=== PATIENT | female | born 1940 | race Caucasian/White ===

== ENCOUNTER → 2016-12-05 | Outpatient (CLI) | payer MEDICARE, OTHER ==
[~2016-12-05] MED LIST: ACETAMINOPHEN650 M1 PO; ALPRAZOLAM PO; ANTIVERT PO; COATED ASPIRIN325 M1 PO; HYDROCODON-ACE1 EAC7 PO; HYDROCODONE APAP; HYDROCODONE-APA1 T45 PO; IRON INFUSIONS; LISINOPRIL PO; LOPRESSOR PO; LORTAB 7.5-5001 TAB PO; METOPROLOL SUCC25 MG PO; NEXIUM20 MG PO; NORCO 10/3251 TAB PO; NORCO 7.5-3251 EACH PO; OMEPRAZOLE40 M1 PO; PRILOSEC PO; PRILOSEC20 MG PO; PROAIR HFA8.5 GM IH; SYMBICORT 16010.2 GM INH; VANTIN100 MG PO; VICODIN 5/500 T1 TAB PO; ZOFRAN PO; [UNRECOGNIZED DRUG - OTHER]
--- NOTE | ~2016-12-05 | CT4 ---
[facility] A Service of [facility] & [facility] RADIOLOGY TEXT RESULTS PATIENT: SAMY BYNUM LOCATION: [facility] : 40 UNIT #: [id number] AGE: [address]: Andrew Mora MD SEX: F ORDER DR: [id number] [address] [address] [id number] MR#: [id number] Acc #: [id number] NAME: SAMY BYNUM : 1940 SEX: F STUDY DATE/TIME: 12/05/2016 11:20 UNIT: [facility] ROOM: STUDY DESCRIPTION: CT Abd and Pelv Wo Cont Attending Physician: Andrew Mora M.D. Referring Physician: Andrew Mora M.D. Ordering Physician: Andrew Mora M.D. Primary Care Physician: Papo Hare M.D. MEDICAL IMAGING REPORT This report is preliminary unless electronic signature is present. EXAM CT abdomen and pelvis about contrast, 12/05/2016 HISTORY Left lower quadrant abdominal pain for 2 weeks. Ultrasound done 1 week ago demonstrating a possible mass in the colon or ovary, per provided patient history. Physician's order states intestinal malabsorption unspecified, iron-deficiency anemia unspecified, malignant neoplasm of the upper lobe right bronchus or lung. COMPARISON PET/CT 03/07/2017. There is no recent ultrasound at this institution for correlation, as would be suggested on the provided patient history. PROCEDURE 5-mm noncontrast axial images from the lung bases through the lesser trochanters without intravenous or enteric contrast administration. Sagittal and coronal reformatted images were obtained. This CT exam was performed with one or more of the following radiation dose reduction techniques: automatic exposure control, adjustment of mA and/or kV according to patient size, and iterative reconstruction. FINDINGS ABDOMEN: The spleen is enlarged, measuring 15.2 cm craniocaudal, 14.8 cm AP oblique. It is larger than on the 03/07/2016 PET/CT where it measured about 13.6 cm AP oblique dimension. No focal splenic lesions identified. Emphysematous changes are present within the lung bases. Lung bases are free of consolidation. Coronary artery calcifications are present. The liver demonstrates a nodular surface morphology raising the possibility of cirrhosis. No focal liver lesions are identified on today's noncontrast exam. There is no ascites. Cholecystectomy changes. The pancreas, right STS. [facility] A Service of [facility] RADIOLOGY TEXT RESULTS PATIENT: SAMY BYNUM LOCATION: [facility] : 40 UNIT #: [id number] AGE: [address]: Andrew Mora MD SEX: F ORDER DR: adrenal, and bilateral kidneys are within normal limits. There is mild thickening of the left adrenal gland without discrete nodularity, likely on the basis hyperplasia. Extensive diverticular changes are present within the colon. The appendix is normal. No pathologic retroperitoneal or mesenteric adenopathy is seen. There is abnormal fusiform aneurysmal dilation of the infrarenal abdominal aorta measuring 5.2 x 5.1 cm, increased from 5.0 x 5.0 cm on the 03/07/2016 examination. PELVIS: A soft tissue mass is demonstrated in the left hemipelvis, measuring 6.1 cm AP x 4.3 cm transverse x 5.1 cm craniocaudal. It is intimately associated with the left pelvic sidewall and is contiguous to the sigmoid colon. It also appears to extend contiguously to the left adnexa and the left lateral margin of the uterus. It is unclear whether this represents an adnexal malignancy or perhaps a primary colonic malignancy. Of particular note, several of the images through the pelvis are degraded by beam-hardening artifact related to patient's bilateral hip prostheses. The urinary bladder is not visualized. The imaged portion of the rectum appears grossly unremarkable. No definite pelvic free fluid is seen. No suspicious osteolytic or osteoblastic lesions are identified. Degenerative facet changes are present at L3-4 through L5-S1. IMPRESSION 1. Abnormal examination. There is a soft tissue density mass in the left hemipelvis. It appears contiguous to the left adnexa, left lateral uterine body margin, and the sigmoid colon. Malignancy cannot be excluded, and it is difficult to discriminate whether this could represent an exophytic primary colonic malignancy or potential ovarian malignancy. Ultimately, surgical consultation is advised. This finding appears new compared to the PET/CT from 03/07/2016. 2. There is no convincing evidence of metastatic disease elsewhere within the pelvis. 3. Cirrhotic liver morphology. Please correlate with known clinical history. 4. Splenomegaly, increased from 03/07/2016. No focal splenic lesions identified. This could be related to suspected underlying cirrhosis. 5. No ascites. 6. 5.2 x 5.1 cm fusiform infrarenal abdominal aortic aneurysm is slightly larger than on 03/07/2016, when it measured 5.0 x 5.0 cm. Vascular surgery consultation advised if not previously performed. 7. Mild emphysema. 8. Cholecystectomy, bilateral hip replacement changes. [facility] A Service of [facility] RADIOLOGY TEXT RESULTS PATIENT: SAMY BYNUM LOCATION: [facility] : 40 UNIT #: [id number] AGE: [address]: Andrew Mora MD SEX: F ORDER DR: Dictated by... Maddison Gomez M.D. THIS IS AN ELECTRONICALLY VERIFIED REPORT Maddison Gomez M.D. at 12/07/2016 7:24 AM PHILOMENA/fior TD: 12/06/2016 11:33 JOB #: [id number] MEDICAL IMAGING REPORT Page 1 of 1
== END | disposition home or self-care (01) ==
LOC: SCT 09:08
DX: C34.11 Malignant neoplasm of upper lobe, right bronchus or lung (principal); K90.9 Intestinal malabsorption, unspecified; D50.9 Iron deficiency anemia, unspecified; M13.0 Polyarthritis, unspecified; M79.89 Other specified soft tissue disorders; R16.1 Splenomegaly, not elsewhere classified; I71.4 Abdominal aortic aneurysm, without rupture; J43.9 Emphysema, unspecified; R93.5 Abnormal findings on diagnostic imaging of other abdominal regions, including retroperitoneum; Z90.49 Acquired absence of other specified parts of digestive tract; Z96.643 Presence of artificial hip joint, bilateral
CPT/HCPCS: 74176

== ENCOUNTER → 2017-02-01 | Outpatient (CLI) | payer MEDICARE, OTHER ==
--- NOTE | ~2017-02-01 | EKG ---
PATIENT: SAMY BYNUM UNIT #: [id number] Ventricular Rate: 96 BPM Atrial Rate: 96 BPM P-R Interval: 202 ms QRS Duration: 80 ms Q-T Interval: 354 ms QTC Calculation(Bezet): 447 ms P Elkins: 77 degrees Calculated R Elkins: 49 degrees Calculated T Elkins: 66 degrees Diagnosis Line: Sinus rhythm with occasional Premature ventricular Diagnosis Line: complexes Diagnosis Line: Otherwise normal ECG Diagnosis Line: When compared with ECG of 25-FEB-2014 09:45, Diagnosis Line: Premature ventricular complexes are now Present Diagnosis Line: Criteria for Inferior infarct are no longer Diagnosis Line: Present Diagnosis Line: Confirmed by FRANCISCO JOHNSTON MD ([id number]) on Diagnosis Line: 02/02/2017 6:41:43 AM INTERPRETING : PATIENCE
[2017-02-01 10:27] LABS: HEMATOCRIT 35.2 % (35.0-45.0); HEMOGLOBIN 11.3 gm/dL (12.0-16.0); MEAN CORPUSCULAR HEMOGLOBIN 26.5 PG (28-34); MEAN PLATELET VOLUME 6.8 FL (6.5-11.5); RED BLOOD COUNT 4.24 X10e (3.90-5.30); RED CELL DISTRIBUTION WIDTH 15.6 % (11.0-15.5); WHITE BLOOD COUNT 3.8 X10e3 (4.0-10.5)
[2017-02-01 11:09] LABS: ALBUMIN SERUM 3.8 g/dL (3.5-5.0); BILIRUBIN,TOTAL 1.2 mg/dL (0.2-2.0); BUN/CREATININE RATIO 18.57; CALCIUM SERUM 9.1 mg/dL (8.4-10.2); CREATININE SERUM 0.7 mg/dL (0.6-1.4); GLOM FILT RATE Estimated 84.2 mL/min (>60); POTASSIUM 4.4 mmol/L (3.5-5.1); PROTEIN TOTAL SERUM 7.7 g/dL (6.0-8.3)
== END | disposition home or self-care (01) ==
LOC: CAMB 08:26
PROVIDERS: Surgery
DX: Z01.818 Encounter for other preprocedural examination (principal); I49.3 Ventricular premature depolarization
CPT/HCPCS: 36415; 80053; 85027; 93005

== ENCOUNTER 2017-02-08 07:29 | Inpatient (IN) | payer MEDICARE, OTHER ==
--- NOTE | ~2017-02-08 | EKG ---
PATIENT: SAMY BYNUM UNIT #: [id number] Ventricular Rate: 88 BPM Atrial Rate: 88 BPM P-R Interval: 202 ms QRS Duration: 78 ms Q-T Interval: 374 ms QTC Calculation(Bezet): 452 ms P Flushing: 61 degrees Calculated R Flushing: 35 degrees Calculated T Flushing: 58 degrees Diagnosis Line: Normal sinus rhythm Diagnosis Line: Normal ECG Diagnosis Line: When compared with ECG of 09-FEB-2017 20:32, Diagnosis Line: (unconfirmed) Diagnosis Line: No significant change was found Diagnosis Line: Confirmed by GAIL LUNA MD ([id number]) on 02/14/2017 Diagnosis Line: 2:54:58 PM INTERPRETING MD: CHERYL STARKS
--- NOTE | ~2017-02-08 | CR72 ---
[facility] A Service of [facility] & [facility] RADIOLOGY TEXT RESULTS PATIENT: SAMY BYNUM LOCATION: [id number] : 40 UNIT #: [id number] AGE: [address]: Jules Rouse MD SEX: F ORDER DR: [id number] [facility] [address] [place], [place] [address] [id number] I MR#: [id number] Acc #: [id number] NAME: SAMY BYNUM : 1940 SEX: F STUDY DATE/TIME: 02/10/2017 15:43 UNIT: [facility] ROOM: 461 STUDY DESCRIPTION: CR Chest Single View Portable Attending Physician: Jules Rouse Jr., M.D. Ordering Physician: Jules Rouse Jr., M.D. Primary Care Physician: Papo Hare M.D. MEDICAL IMAGING REPORT This report is preliminary unless electronic signature is present EXAM Portable chest. HISTORY PICC placement today. FINDINGS Right arm approach PICC tip is in low SVC 1 cm above the junction of the SVC and right atrium. Chronic right perihilar patchy density is unchanged compared to 02/25/2014 chest x-ray. Relatively low lung volumes with stable elevation of the right hemidiaphragm. No new infiltrates. Dictated by... Kye Jordan M.D. THIS IS AN ELECTRONICALLY VERIFIED REPORT Kye Jordan M.D. at 02/11/2017 10:35 PM AGUILA/gloria TD: 02/11/2017 00:31 JOB #: [id number] MEDICAL IMAGING REPORT Page 1 of 1 COPY
--- NOTE | ~2017-02-08 | CO ---
Unit #: [id number] #: [id number] Patient: SAMY DAVIDSON [id number] [address] [place], [place] [address] [id number] MR#: [id number] NAME: SAMY DAVIDSON ROOM: [facility] Age: 76 Sex: F Admission Date: 02/08/2017 : 1940 Attending Physician: Jules Rouse Jr., M.D. Primary Care Physician: Papo Hare M.D. Consultation Date: 02/14/2017 CONSULTATION REPORT REASON FOR CONSULTATION Shortness of breath. HISTORY OF PRESENT ILLNESS A 76-year-old female known to me, has COPD, lung cancer status post radiation for PET-positive lesion, felt to be recurrent cancer. She has had a history of GI bleeding in the past from an occult source. She was found to have a pelvic mass and underwent surgery. That revealed some type of fibroconnective tissue, inflammation, no definite malignancy. A second opinion apparently is pending. She had black tarry stools and was found to have anemia and GI bleeding. That apparently has stabilized and her hemoglobin is 9.1. She developed shortness of breath last night. She had a breathing treatment which seemed to improve things. She also had Lasix and at least historically, had significant increase in urinary output. At the time of shortness of breath, she did have wheezing but she denied chest pain, palpitations, sputum production, cough, or hemoptysis. PAST MEDICAL HISTORY 1. Coronary artery disease, status post myocardial infarction in 2003. 2. History of COPD. 3. History of lung cancer, status post radiation therapy recently. 4. History of peripheral vascular disease with abdominal aortic aneurysm. 5. History of GI bleeding. MEDICATIONS Medicines at home from a med rec sheet include: 1. Zestril. 2. ProAir. 3. Meclizine. 4. Hydrocodone. 5. Prilosec. 6. Iron. 7. Metoprolol. ALLERGIES Allergies are multiple and it is unclear if they are true allergies or not. Benadryl which apparently caused nausea, ciprofloxacin, penicillin, statins, hydrocodone caused her to be hot and sweaty, Demerol. SOCIAL HISTORY Quit smoking somewhere around 2003. FAMILY HISTORY Unit #: [id number] #: [id number] Patient: SAMY DAVIDSON No familial lung disease. REVIEW OF SYSTEMS No abdominal pain, black tarry stools, no bright red blood per rectum. No nausea, vomiting, aspiration. No chest pain, palpitations. No hematuria, dysuria. No focal weakness, paraesthesias. No leg pain, swelling. No hemoptysis or pleurisy. No fever, chills, weight loss. Further review of systems negative. PHYSICAL EXAMINATION GENERAL: Examination reveals a lady who is comfortable on room air. VITAL SIGNS: Saturation is 97%. She is afebrile. Pulse is 56, respiratory rate is 18, blood pressure 120/61. She is 5 foot 5 inches, 134 pounds. HEENT: Pupils equal, round, and reactive to light. Sclerae anicteric. Head atraumatic. Mucous membranes moist. NECK: Supple. No supraclavicular or cervical adenopathy appreciated. CHEST: Decreased breath sounds, mildly prolonged expiratory phase. No definite wheeze. She had a few crackles at the left base, most of them cleared with inhalation maneuvers. CARDIAC: Reveals a regular rate and rhythm. No pathologic murmur, rub, or gallop. ABDOMEN: Postop appropriate tenderness. She was able to sit up in bed without assistance. EXTREMITIES: Calves are nontender. No clubbing, cyanosis, or edema. NEUROLOGIC: Grossly intact. No focal muscle or sensory deficits. SKIN: Warm and dry without rash, diaphoresis. DIAGNOSTIC STUDIES LABORATORY: BUN 26, creatinine 0.3. INR normal. White blood cell count 5.1, hemoglobin 9.1, platelet count 87,000. Rhythm strips are sinus. IMAGING: Chest x-ray previously was no acute disease. CARDIOVASCULAR: EKG previously was fairly unremarkable. IMPRESSION 1. Shortness of breath responding to Lasix and Mini nebs. It may be a mild exacerbation of her airways disease, but I suspect she had some mild volume overload with her transfusions. Whatever the cause, she certainly is much better now. 2. Chronic obstructive pulmonary disease. 3. Gastrointestinal bleeding. 4. Pelvic mass. 5. Lung cancer, status post radiation. 6. Peripheral vascular disease. 7. Coronary artery disease with unknown left ventricular function. PLAN A chest x-ray will be obtained. BNP as well as cardiac enzymes will be performed on today's blood. I will add inhaled cortical steroids and long-acting beta agonist and continue as needed albuterol. I will try to review my office notes. Consider echocardiogram, I suspect left ventricular function is known from outpatient cardiology evaluation. Thank you very much for allowing me to participate in the care of Ms. Davidson. Unit #: [id number] #: [id number] Patient: SAMY DAVIDSON Dictated by... Shon Jean/melissa TD: 02/14/2017 10:32 JOB #: [id number] CONSULTATION REPORT Page 1 of 1 X Reid Skinner MD X CONSULTATION REPORT
--- NOTE | ~2017-02-08 | OR ---
Unit #: [id number] #: [id number] Patient: SAMY BYNUM [id number] [address] [place], [place] [address] [id number] Annetta MR#: [id number] NAME: SAMY BYNUM ROOM: [facility] Date of Procedure: 02/08/2017 Admission Date: 02/08/2017 Surgeon: Jules Rouse Jr., M.D. : 1940 Attending Physician: Jules Rouse Jr., M.D. Primary Care Physician: Papo Hare M.D. OPERATIVE REPORT INDICATION FOR PROCEDURE The patient is a 76-year-old white female, who is recently being worked up for several minor medical problems and had a CAT scan which revealed evidence of pelvic mass. This was felt to possibly be a cancer and she has had a previous lung cancer in the past which was treated with radiation and she has remained free of disease. I have been asked to biopsy this tumor if possible or possibly remove it if necessary. She is brought in this time for diagnostic laparoscopy, possible laparoscopic biopsy versus open exploratory laparotomy with biopsy of her tumor. PREOPERATIVE DIAGNOSIS Mass of the pelvis, rule out cancer. 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 ANESTHESIA General with endotracheal intubation. RN MED SURG Dallas Worley M.D. PROCEDURES PERFORMED Diagnostic laparoscopy with conversion to exploratory open laparotomy with biopsy of a mass and frozen section. DESCRIPTION OF PROCEDURE The patient was positioned in supine position. After being anesthetized and intubated, she was prepped and draped in routine fashion for diagnostic laparoscopy, possible laparoscopic biopsy for mass versus open. A small 0.5 cm incision was made just above the umbilicus. This was carried down through the subcutaneous to the fascia. Fascia lifted between 2 Geoffrey clamps and Veress needle introduced into the abdomen. The abdomen was then inflated with CO2 gas. A 5-mm port was introduced in the abdomen followed by the camera. There was no evidence of any injury related to introduction of the port or the Veress needle. Additional 5-mm port was placed 2 inches above the suprapubic area and the pelvic area checked with the patient in Trendelenburg. Diagnostic laparoscopy revealed evidence of macronodular cirrhosis and evidence of mass in the pelvic area, which was between the colon and uterus by appearance. It was Unit #: [id number] #: [id number] Patient: SAMY BYNUM felt that an open biopsy should be performed. Therefore, the CO2 was expressed from the abdomen. The ports were removed. A midline incision was made extending approximately 5 inches in length below the umbilicus towards the suprapubic area. This was carried down through subcutaneous tissue down to the fascia with a Bovie cautery and once the abdomen was opened, the remainder of the incision was opened with cutting edge of the Bovie cautery. Intra-abdominal exploration was carried out. The patient was noted to have a mass in the pelvic area with the colon having extensive diverticulosis, but the mass appeared to be ovarian or uterine and not colonic. Dr. Worley scrubbed in for an intraoperative consult and he concurred that the patient likely will need hysterectomy to removal of this mass along with the uterus. Using a Bin-Cut needle, 2 biopsies were taken from the mass and this revealed probable ovarian origin, but no obvious mitoses. There was some atypia. 2-0 silk stitch was used to close the area of the needle biopsy on the mass and the abdomen was then copiously irrigated with saline solution. The midline was closed with interrupted #1 Vicryl suture single fascial layer closure. Subcutaneous tissue was irrigated and after hemostasis achieved with Bovie cautery, skin edges were approximated with stainless-steel skin clips and skin stapling device. Sterile dressings were applied externally. Estimated blood loss less than 50 mL. The patient received less than 2000 mL crystalloid solution during the procedure. Sponges and instrument counts were correct x3. No drains were used. No complications. The patient was taken to the recovery room with stable vital signs in satisfactory condition. Dictated by... Jules Rouse Jr., M.D. JMB/christopher TD: 02/08/2017 18:02 JOB #: [id number] CC: Papo Hare M.D. OPERATIVE REPORT Page 1 of 1 X Jules Rouse MD PROCEDURE OPERATIVE NOTE
--- NOTE | ~2017-02-08 | CO ---
Unit #: [id number] #: [id number] Patient: TABATHA DAVIDSON [id number] [address] [place], [place] [address] [id number] I MR#: [id number] NAME: TABATHA DAVIDSON [place]OM: [facility] [place] Age: 76 Sex: F Admission Date: 02/08/2017 : 1940 Attending Physician: Jules Rouse Jr., M.D. Primary Care Physician: Papo Hare M.D. Requesting Physician: Jules Rouse Jr., M.D. Consultation Date: 02/11/2017 CONSULTATION REPORT REASON FOR CONSULTATION Postop GI bleeding and history of recurrent lung cancer with a pelvic mass. HISTORY OF PRESENT ILLNESS Mrs. Tabatha Davidson is 76 years old with a history of recurrent non-small cell lung cancer and long history of GI bleeding with an occult source of blood loss, who was admitted to the hospital electively for a laparoscopic biopsy for a newly diagnosed pelvic mass. Following admission on 02/08/2017 the mass was unable to be located laparoscopically and she underwent a minilaparotomy with biopsy of a pelvic mass. Post procedure her hemoglobin has dropped with hemoglobin on February 01, 2017 being 11.3, dropping to 9.6 on the , 7, 6.6, and most recently 6.7. She has had multiple loose stools containing both fresh as well as dark blood. A recent colonoscopy done at [facility] was unable to be completed because of inability to pass it beyond the sigmoid colon. She has had a long history of GI bleeding requiring line since 1999 with previous endoscopies being negative. She has been having pain in the right upper quadrant and epigastrium post surgery which was different from the pain she had in the left flank and left lower quadrant prior to the procedure. PAST HISTORY Degenerative arthritis. Coronary artery disease with a history of angioplasty and stent placement. Diagnosed with non-small cell lung cancer in 2007, stage III, undergoing concurrent chemo and radiation therapy. Iron deficiency anemia since 2005. On routine surveillance in 03/06/2016 was found to have a new pleurally based right upper lobe mass. Biopsy could not be done because of location as well as the patient's reluctance. She subsequently underwent stereotactic radiation therapy after PET CT scan showed no other sites of disease. She also has an abdominal aortic aneurysm currently measuring 5.5 cm. On 11/25/2015 an abdominal ultrasound showed a 5.8 x 4.2 x 4.1 soft tissue mass in the left adnexal area with a previous CT scan from June 2016 showing no correlate. PAST SURGICAL HISTORY Angioplasty and stent placement. FAMILY HISTORY Notable for leukemia in sister at age three and thyroid cancer in a daughter. Unit #: [id number] #: [id number] Patient: TABATHA DAVIDSON SOCIAL HISTORY Quit smoking in 1999 but was a qhg-[id number]-per-day smoker. She does not drink any alcohol. She is and lives with . REVIEW OF SYSTEMS A 14-point review of systems was taken. CONSTITUTIONAL: Fatigue, weakness. EYES: Negative. EARS/NOSE/MOUTH/THROAT: Negative. CARDIOVASCULAR: Negative. RESPIRATORY: Chronic shortness of breath with no recent change No cough or hemoptysis. GASTROINTESTINAL: As discussed GENITOURINARY: Negative. NEUROLOGIC: Negative. PSYCHIATRIC: Negative. ALLERGIC/LYMPHATIC: Negative. SKIN: Negative. PHYSICAL EXAMINATION GENERAL APPEARANCE: On examination she is a pleasant elderly woman, awake, alert and oriented x3, looks pale. VITAL SIGNS: Temperature is 97.7, pulse rate is 121, respiratory rate is 18, blood pressure 106/53, O2 sat 98% on room air. HEENT: Shows pallor. Pupils equal and react well to light. No icterus. Mucous membranes are slightly dry. NECK: Without adenopathy, JVD or thyromegaly. CARDIOVASCULAR SYSTEM: First and second heart sounds are heard and regular, without murmurs, gallops or rubs. LUNGS: Chest expansion symmetric. Bilateral equal air entry. Normal breath sounds. ABDOMEN: Soft. Slightly tender to midline incisions. Bowel sounds are active. EXTREMITIES: Warm with good pulses. No edema, cyanosis or clubbing. NEUROLOGIC: She is awake, alert and oriented x3 with no focal finding. PSYCHIATRIC: Normal affect. SKIN: Negative. LYMPHATIC: Negative. DIAGNOSTIC STUDIES LABORATORY: CBC from this morning shows a white count of 14,700 and hemoglobin 6.7, platelet count is 165,000. A basic metabolic panel shows a BUN of 31, creatinine is 0.5. ASSESSMENT Mrs. Tabatha Davidson is 76 years old with a history of recurrent non-small cell lung cancer, coronary artery disease with a history of angioplasty and stent placement and a newly diagnosed pelvic mass for which she underwent a minilaparotomy and biopsy. She now has melena, hematochezia, with a long history of previous GI bleeding dating back to 2005 with previous negative workup. At this time she is appropriately being transfused packed cells. I spoke to Dr. Rouse about the operative findings. He indicated that she was found to have a firm to hard mass the size of a golf ball intermittently attached to the right side of the uterus and arising most likely from this. This was distinctly not related to the sigmoid colon which is probably not metastatic. I spoke to Dr. Esme Casanova of pathology. Core biopsies of the mass revealed fibroconnective tissue Unit #: [id number] #: [id number] Patient: TABATHA DAVIDSON with some inflammatory response and atypia, not clearly indicative of malignancy. I discussed the situation with Mrs. Davidson's and two daughters at bedside. Her postop gastrointestinal bleeding is probably related to the procedure given coupled with the long history of GI bleeding. RECOMMENDATIONS 1. Agree with current plans for transfusion support. Will additionally give her Ferrlecit 250 mg IV daily for the next three days given her long history of malabsorption requiring iron supplementation. 2. Await bleeding scan and will discuss if abnormal. 3. Discussed the abdominal aortic aneurysm about which she is concerned. I think she will require a stent placement prior to any attempted surgery for her parauterine mass. 4. Discussed about the biopsy results of parauterine mass which is not clearly malignant but certainly has grown between June 2016 to the November 2016 scan, suggesting malignancy still needs to be exclude. She will require a hysterectomy and PRESS [employer] PERSON oncology consultation which we will discuss in outpatient discharge as an outpatient. Thank you for allowing me to participate in her care. Dictated by... Andrew Mora M.D. GUILLERMO/mirna TD: 02/11/2017 18:50 JOB #: [id number] CONSULTATION REPORT Page 1 of 1 X Andrew Mora MD CONSULTATION REPORT
--- NOTE | ~2017-02-08 | CR236 ---
[facility] A Service of [facility] RADIOLOGY TEXT RESULTS PATIENT: SAMY BYNUM LOCATION: [facility] 316-01 : 40 UNIT #: [id number] AGE: [address]: Jules Rouse MD SEX: F ORDER DR: [id number] [place] [id number] [facility]. [place], [place] [address] [id number] I MR#: [id number] Acc #: [id number] NAME: SAMY BYNUM : 1940 SEX: F STUDY DATE/TIME: 02/15/2017 9:17 [facility] STUDY DESCRIPTION: CR Small Bowel Sbft W Films Attending Physician: Jules Rouse Jr., M.D. Ordering Physician: Harjinder Smart M.D. Primary Care Physician: Papo Hare M.D. MEDICAL IMAGING REPORT This report is preliminary unless electronic signature is present EXAM Small bowel follow-through, 02/15/2017. HISTORY GI bleed. Abnormal bleeding scan, 02/11/2017, showing potential bleeding in the right lateral small bowel. FINDINGS [employer] image shows midline skin haley. Bilateral hip arthroplasties are present. Following the oral ingestion of barium contrast, transit time through the small bowel is prompt, with contrast reaching the proximal colon within an hour. No bowel obstruction is seen. Small bowel caliber is normal. The terminal ileum is within normal limits. Prominent contrast collection in the right lower quadrant is felt to represent the tip of the cecum, as seen on the patient's CT of 12/05/2016. There is no evidence of bowel wall thickening. FLUOROSCOPY Fluoro time was 1.1 minutes. 14 total images were obtained. IMPRESSION Normal small bowel follow-through. Dictated by... Harjinder Blanc Jr., M.D. THIS IS AN ELECTRONICALLY VERIFIED REPORT Harjinder Blanc Jr., M.D. at 02/15/2017 4:47 PM GERARDK/fior [facility] A Service of [facility] RADIOLOGY TEXT RESULTS PATIENT: SAMY BYNUM LOCATION: [facility] 316-01 : 40 UNIT #: [id number] AGE: [address]: Jules Rouse MD SEX: F ORDER DR: TD: 02/15/2017 11:24 JOB #: [id number] MEDICAL IMAGING REPORT Page 1 of 1 COPY
--- NOTE | ~2017-02-08 | EKG ---
PATIENT: SAMY BYNUM UNIT #: [id number] Ventricular Rate: 119 BPM Atrial Rate: 119 BPM P-R Interval: 174 ms QRS Duration: 74 ms Q-T Interval: 322 ms QTC Calculation(Bezet): 452 ms P [place]: 60 degrees Calculated R [place]: 20 degrees Calculated T [place]: 51 degrees Diagnosis Line: Sinus tachycardia Diagnosis Line: Otherwise normal ECG Diagnosis Line: When compared with ECG of 01-FEB-2017 08:59, Diagnosis Line: Premature ventricular complexes are no longer Diagnosis Line: Present Diagnosis Line: Confirmed by SOM SY MD ([id number]) on Diagnosis Line: 02/12/2017 11:04:41 AM INTERPRETING MD: KERRIE STARKS
--- NOTE | ~2017-02-08 | EKG ---
PATIENT: SAMY BYNUM UNIT #: [id number] Ventricular Rate: 110 BPM Atrial Rate: 110 BPM P-R Interval: 172 ms QRS Duration: 86 ms Q-T Interval: 342 ms QTC Calculation(Bezet): 462 ms P [place]: 64 degrees Calculated R [place]: 28 degrees Calculated T [place]: 58 degrees Diagnosis Line: Sinus tachycardia with occasional Premature Diagnosis Line: ventricular complexes Diagnosis Line: Otherwise normal ECG Diagnosis Line: When compared with ECG of 12-FEB-2017 05:56, Diagnosis Line: (unconfirmed) Diagnosis Line: Premature ventricular complexes are now Present Diagnosis Line: Confirmed by GAIL LUNA MD ([id number]) on 02/14/2017 Diagnosis Line: 3:04:21 PM INTERPRETING MD: CHERYL STARKS
--- NOTE | ~2017-02-08 | DS ---
Unit #: [id number] #: [id number] Patient: SAMY BYNUM [id number] [address] [address] [id number] I MR#: [id number] NAME: SAMY BYNUM ROOM: 316 Age: 76 Sex: F Admission Date: 02/08/2017 : 1940 Discharge Date: 02/16/2017 Attending Physician: Jules Rouse Jr., M.D. Primary Care Physician: Papo Hare M.D. DISCHARGE SUMMARY PRINCIPAL DIAGNOSIS Pelvic mass. OPERATIONS/PROCEDURES 1. Diagnostic laparoscopy, exploratory laparotomy with biopsy of pelvic mass. 2. Upper GI small bowel followthrough. 3. Bleeding scan. CONSULTANTS 1. Dr. Mora of oncology. 2. Dr. Johnson of cardiology. 3. Dr. Jamie Skinner of pulmonary medicine. DISCHARGE INSTRUCTIONS 1. No lifting for five weeks. 2. No driving for one week. 3. May shower. 4. Follow up with Dr. Rouse next week. 5. No aspirin or nonsteroidal anti-inflammatory medications. 6. No tobacco. 7. No alcohol. 8. Take omeprazole b.i.d. 9. Prescriptions given for omeprazole and [place]. 10. Diet of choice. CONDITION ON DISCHARGE Satisfactory. CHIEF COMPLAINT/HISTORY OF PRESENT ILLNESS Patient is a 76-year-old, white female who presented with a pelvic mass and the plan is for diagnostic laparoscopy and possible laparotomy. For complete history and physical, please refer to the chart. HOSPITAL COURSE Patient was admitted on 02/08/17 and taken to the operating room. A diagnostic laparoscopy was performed. It revealed a large pelvic mass. It was felt safe to proceed with exploratory laparotomy, which was then performed and a biopsy was performed of the mass. Postoperatively, the patient was seen by cardiology and was placed on telemetry. In addition, the patient was seen by pulmonary medicine and oncology. The patient developed a melena on postop day #3. The patient received a stat bleeding scan, which revealed rapid accumulation of the GI tracer in what appeared to be the small bowel on the right side of the abdomen. The patient was Unit #: [id number] #: [id number] Patient: SAMY BYNUM started on Protonix b.i.d. and was transferred to the intensive care unit. She received a transfusion of packed red blood cells. Her GI bleeding stopped and her status improved. She had no further bleeding. Her diet was slowly advanced. She was transferred out of the intensive care unit. On 02/16/17, the patient was tolerating a regular diet and having regular bowel movements. Her abdomen was soft and nontender with her incision without evidence of infection. We had a lengthy conversation with her regarding the fact that it would be best to have upper and lower endoscopy performed because of her recent GI bleeding. She stated clearly she did not feel up to having this performed at this time. We explained to her she needs to avoid nonsteroidal anti-inflammatory medications, aspirin, tobacco, and alcohol and needs to take omeprazole at a prescription dose twice a day. She was discharged home after this (1) instruction in the presence of her daughter. All instructions were given to her prior to discharge. She was discharged home in satisfactory condition and will follow up with Dr. Rouse in one week. Dictated by... Shon Wesley/lupe TD: 02/16/2017 08:38 JOB #: [id number] CC: [facility] Reid Skinner M.D. DISCHARGE SUMMARY Page 1 of 1 X Blanco Majano MD X DISCHARGE SUMMARY
--- NOTE | ~2017-02-08 | CO ---
Unit #: [id number] #: [id number] Patient: SAMY BYNUM [id number] [address] [place], [place] [address] [id number] I MR#: [id number] NAME: SAMY BYNUM ROOM: [facility] Age: 76 Sex: F Admission Date: 02/08/2017 : 1940 Attending Physician: Jules Rouse Jr., M.D. Primary Care Physician: Papo Hare M.D. Consultation Date: 02/10/2017 CONSULTATION REPORT REASON FOR CONSULT Tachycardia. HISTORY OF PRESENT ILLNESS The patient is a 76-year-old white female, who sees Dr. Henriquez in the office for history of coronary artery disease, status post PCI and two stents in 2003, lung cancer nine years ago with recurrence where she just finished radiation a month ago, nonalcoholic cirrhosis, enlarged spleen, abdominal aneurysm measuring 5.2 x 5.1 cm, pelvic mass recently diagnosed on CT scan, former smoker (quit 10 years ago), as well as, iron-deficiency anemia. Patient had a stress test with Dr. Henriquez in April of last year that was a preop clearance for her to have the abdominal aortic aneurysm surgery; however, upon further scanning and the patient complaining of some pain in the left lower abdomen, CT scan showed a spot on the lung that was concerning for cancer as well as a pelvis mass. The patient subsequently was diagnosed with lung cancer and has been going through radiation which she did finish one month ago. Patient came to the hospital on February 08 to have a laparoscopic pelvic mass biopsy; however, they did end up having to do an open biopsy. Around 2 or 3 this morning, patient woke up and she began with black tarry stools and she had approximately three episodes of this. Patient is also having a fair amount of pain to the right upper abdomen area and left lower abdomen area. Check of hemoglobin showed a hemoglobin of 6.6, and patient has been ordered to have 2 units of blood. The first one is infusing currently. Cardiology was consulted for tachycardia with a max of 143 noted this morning with her vital signs. Patient has not been on telemetry since surgery, unable to trend heart rate other than what is documented in the computer. Blood pressure currently is also low with systolic of 94. Patient complains of no chest pain, shortness of breath, chest pressure, palpitations prior to coming in for surgery since her stents were placed in 2003. Today, patient does complain of feeling weak and short of breath with exertion as well as a little bit of palpitations if she gets up and walks and returns to bed. EKG shows sinus tachycardia with a rate of 119. PAST MEDICAL HISTORY 1. Coronary artery disease, status post PCI and stents in 2003. 2. Normal stress, April 2016. 3. Lung cancer nine years ago with recurrence and she just finished radiation one month ago. 4. Nonalcoholic cirrhosis. 5. Enlarged spleen. 6. Abdominal aneurysm measuring 5.2 x 5.1 cm. 7. Pelvis mass, status post biopsy February 08. Unit #: [id number] #: [id number] Patient: SAMY BYNUM 8. Former smoker, quit 10 years ago. 9. Iron-deficiency anemia. PAST SURGICAL HISTORY 1. Cardiac stents. 2. Cholecystectomy. 3. Tubal. 4. Hip replacements. REVIEW OF SYSTEMS See HPI. PHYSICAL EXAMINATION GENERAL: This is a 76-year-old white female who is alert and oriented x3, no apparent distress. VITAL SIGNS: Blood pressure 113/68, temperature 98.1, pulse 143, respirations 16. HEENT: Pupils equal, round, and reactive. Oral mucosa is moist. NECK: No JVD. No thyromegaly. No lymphadenopathy. No carotid bruits. HEART: S1, S2. Tachy rate. No S3, S4. No clicks. No rubs. No murmurs. LUNGS: Clear. ABDOMEN: Tender, nondistended, faint bowel sounds. EXTREMITIES: No swelling. NEUROLOGIC: No neuro deficits noted. ALLERGIES Benadryl, ciprofloxacin, statins, oxycodone, adhesive tape, and meperidine. HOME MEDICATIONS 1. Zestril 2.5 mg p.o. daily. 2. ProAir inhaler two puffs as needed for shortness of breath. 3. Meclizine 25 mg p.o. twice a day as needed for dizziness. 4. Hydrocodone 10/325 q.8 hours as needed for pain. 5. Prilosec 20 mg p.o. daily. 6. Iron infusions every six to eight weeks due to iron-deficiency anemia, last one was two months ago. 7. Metoprolol succinate 25 mg p.o. daily. DIAGNOSTIC STUDIES LABORATORY: Hemoglobin 6.6, hematocrit 20.8, white count 15.3, platelets 202,000. Sodium 137, potassium 3.8, chloride 103, CO2 of 29, glucose 121, BUN 18, creatinine 0.7. CARDIOVASCULAR: EKG shows sinus tachycardia. IMPRESSION 1. Tachycardia, likely related to hypovolemia secondary to gastrointestinal bleed. 2. Gastrointestinal bleed. 3. Status post open pelvis mass biopsy on February 08. 4. Coronary artery disease with a history of two stents in 2003. 5. Chronic obstructive pulmonary disease. 6. Lung cancer with recurrence. 7. Iron-deficiency anemia. PLAN Unit #: [id number] #: [id number] Patient: SAMY BYNUM For now, will place patient on telemetry to monitor heart rate and rhythm. Will put parameters on her Lopressor to hold for systolic below 100. Will start patient on IV fluids at 75 mL/hr in addition to the blood that she is receiving. Patient's heart rate will likely improve once her volume status and blood count improves. Discussed with the patient, the daughter, and the who were all in the room and all verbalized understanding of the plan of care. Patient has had recent ischemic workup with Dr. Henriquez and there is no indication currently that patient needs any further ischemic workup or any cardiology investigation for the tachycardia. Will monitor her through the admission and make recommendations pending patient's course of treatment. Dictated by... Omayra Hagan APRN for Shon Maynard TD: 02/11/2017 14:10 JOB #: [id number] CONSULTATION REPORT Page 1 of 1 X X CONSULTATION REPORT
--- NOTE | ~2017-02-08 | NM18 ---
[facility] A Service of [facility] RADIOLOGY TEXT RESULTS PATIENT: SAMY BYNUM LOCATION: [address] : 40 UNIT #: [id number] AGE: [address]: Jules Rouse MD SEX: F ORDER DR: [id number] [facility] [address] [place], [place] [address] [id number] I MR#: [id number] Acc #: [id number] NAME: SMAY BYNUM : 1940 SEX: F STUDY DATE/TIME: 02/11/2017 11:06 UNIT: [facility] ROOM: [facility] STUDY DESCRIPTION: NM GI Bleeding Scan Attending Physician: Jules Rouse Jr., M.D. Ordering Physician: Jules Rouse Jr., M.D. Primary Care Physician: Papo Hare M.D. MEDICAL IMAGING REPORT This report is preliminary unless electronic signature is present EXAM GI bleeding scan, 02/11/2017 CLINICAL HISTORY Cirrhosis, chronic history of repeated GI bleeding. PROCEDURE Study performed with 23.9 mCi Tc99m UltraTag RBCs intravenously. FINDINGS Study is rapidly positive for right side small bowel bleeding. IMPRESSION Positive GI bleeding scan for right lateral abdominal small bowel hemorrhage. Dictated by... Dre Adam M.D. THIS IS AN ELECTRONICALLY VERIFIED REPORT Dre Adam M.D. at 02/12/2017 10:54 AM SLIME/cornelius TD: 02/11/2017 22:02 JOB #: [id number] MEDICAL IMAGING REPORT Page 1 of 1 COPY
--- NOTE | ~2017-02-08 | CR72 ---
[facility] A Service of [facility] RADIOLOGY TEXT RESULTS PATIENT: SAMY BYNUM LOCATION: [address] : 40 UNIT #: [id number] AGE: [address]: Jules Rouse MD SEX: F ORDER DR: [id number] [facility] [address] [facility]. [place], [place] [address] [id number] I MR#: [id number] Acc #: [id number] NAME: SAMY BYNUM : 1940 SEX: F STUDY DATE/TIME: 02/14/2017 0954 UNIT: [facility] ROOM: [facility] STUDY DESCRIPTION: CR Chest Single View Portable Attending Physician: Jules Rouse Jr., M.D. Ordering Physician: Reid Skinner M.D. Primary Care Physician: Papo Hare M.D. MEDICAL IMAGING REPORT This report is preliminary unless electronic signature is present EXAM Chest, portable, 02/14/2017, 0954 hours. CLINICAL HISTORY 76-year-old woman complaining of shortness of air since 02/08/2017. COMPARISON 02/10/2017 FINDINGS Portable upright chest demonstrates very low lung volumes. There is a right PICC line with the tip in SVC similar to prior study. Heart size is normal. There is increase in perihilar and suprahilar density since the prior study. I believe this is likely accounted for by the lower lung volumes, although developing infiltrate in the right medial suprahilar region and left lung base are difficult to exclude. There are no effusions. IMPRESSION Lung volumes are significantly lower than on the comparison study of 02/10/2017. There is apparent increase in perihilar, right suprahilar, and left infrahilar lung markings which I would favor is simply related to the expiratory nature of the film. In this setting, however, it is difficult to exclude a developing infiltrate, particularly in the medial right upper lobe and the medial left lung base. It is favored that this is related to low lung volumes. No effusion seen. Dictated by... Kelsey See M.D. THIS IS AN ELECTRONICALLY VERIFIED REPORT [facility] A Service of [facility] RADIOLOGY TEXT RESULTS PATIENT: SAMY BYNUM LOCATION: [address] : 40 UNIT #: [id number] AGE: [address]: Jules Rouse MD SEX: F ORDER DR: Kelsey See M.D. at 02/14/2017 4:57 PM COMPA/gloria TD: 02/14/2017 14:38 JOB #: [id number] MEDICAL IMAGING REPORT Page 1 of 1 COPY
[~2017-02-08 07:29] MED LIST changes: -HYDROCODON-ACE1 EAC7 PO; -OMEPRAZOLE40 M1 PO; -SYMBICORT 16010.2 GM INH
[2017-02-09 03:19] LABS: HEMOGLOBIN 9.6 gm/dL (12.0-16.0); MEAN CELL VOLUME 82.5 FL (83-96); MEAN CORPUSCULAR HEMOGLOBIN 26.5 PG (28-34); MEAN CORPUSCULAR HGB CONC 32.1 g/dL (30-36); MEAN PLATELET VOLUME 7.2 FL (6.5-11.5); RED BLOOD COUNT 3.64 X10e (3.90-5.30); RED CELL DISTRIBUTION WIDTH 15.6 % (11.0-15.5); WHITE BLOOD COUNT 7.6 X10e3 (4.0-10.5)
[2017-02-09 03:43] LABS: ALBUMIN SERUM 3.1 g/dL (3.5-5.0); BILIRUBIN,TOTAL 0.9 mg/dL (0.2-2.0); BUN/CREATININE RATIO 25.71; CALCIUM SERUM 8.3 mg/dL (8.4-10.2); CREATININE SERUM 0.7 mg/dL (0.6-1.4); GLOM FILT RATE Estimated 84.2 mL/min (>60); POTASSIUM 3.8 mmol/L (3.5-5.1); PROTEIN TOTAL SERUM 6.7 g/dL (6.0-8.3)
[2017-02-10 04:09] LABS: HEMATOCRIT 21.8 % (35.0-45.0); MEAN CELL VOLUME 81.7 FL (83-96); MEAN CORPUSCULAR HEMOGLOBIN 26.2 PG (28-34); MEAN PLATELET VOLUME 7.1 FL (6.5-11.5); RED BLOOD COUNT 2.66 X10e (3.90-5.30)
[2017-02-10 04:19] LABS: WHITE BLOOD COUNT 15.3 X10e3 (4.0-10.5)
[2017-02-10 09:32] LABS: HEMATOCRIT 20.8 % (35.0-45.0)
[2017-02-10 09:40] LABS: HEMOGLOBIN 6.6 gm/dL (12.0-16.0)
[2017-02-10 15:05] LABS: HEMOGLOBIN 7.1 gm/dL (12.0-16.0)
[2017-02-10 15:29] LABS: INR 1.1; PARTIAL THROMBOPLASTIN TIME 26.4 SECONDS (23.5-31.3); PROTHROMBIN TIME (PATIENT) 12.3 SECONDS (10.0-11.7)
[2017-02-10 20:35] LABS: HEMATOCRIT 22.4 % (35.0-45.0); HEMOGLOBIN 7.4 gm/dL (12.0-16.0)
[2017-02-11 07:16] LABS: BASOPHIL# 0.1 X10e3 (0-0.3); BASOPHIL% 0.5 % (0-2.5); EOSINOPHIL# 0.1 X10e3 (0-0.7); EOSINOPHIL% 0.5 % (0.0-7.0); HEMATOCRIT 20.8 % (35.0-45.0); LYMPHOCYTE# 1.5 X10e3 (1.0-3.5); LYMPHOCYTE% 10.1 % (17.0-45.0); MEAN CELL VOLUME 83.9 FL (83-96); MEAN CORPUSCULAR HEMOGLOBIN 27.1 PG (28-34); MEAN CORPUSCULAR HGB CONC 32.3 g/dL (30-36); MEAN PLATELET VOLUME 7.4 FL (6.5-11.5); MONOCYTE% 6.7 % (3.0-12.0); NEUTROPHIL# 12.1 X10e3 (1.5-7.1); NEUTROPHIL% 82.2 % (40-75); PLATELET COUNT 165 X10e3 (140-420); RED BLOOD COUNT 2.48 X10e (3.90-5.30); RED CELL DISTRIBUTION WIDTH 15.3 % (11.0-15.5); WHITE BLOOD COUNT 14.7 X10e3 (4.0-10.5)
[2017-02-11 07:19] LABS: DIFF IND YES
[2017-02-11 07:40] LABS: CALCIUM SERUM 7.5 mg/dL (8.4-10.2); CREATININE SERUM 0.5 mg/dL (0.6-1.4); POTASSIUM 3.9 mmol/L (3.5-5.1)
[2017-02-11 09:48] LABS: HYPERSEGMENTED POLYS PRESENT; ROULEAUX SLIGHT
[2017-02-11 09:59] LABS: ANISOCYTOSIS MOD; PLATELET ESTIMATE NORMAL (NORMAL)
[2017-02-11 14:54] LABS: INR 1.1; PARTIAL THROMBOPLASTIN TIME 25.6 SECONDS (23.5-31.3); PROTHROMBIN TIME (PATIENT) 12.3 SECONDS (10.0-11.7)
[2017-02-11 16:19] LABS: HEMOGLOBIN 8.3 gm/dL (12.0-16.0)
[2017-02-11 20:26] LABS: HEMOGLOBIN 7.4 gm/dL (12.0-16.0)
[2017-02-12 00:33] LABS: HEMOGLOBIN 6.4 gm/dL (12.0-16.0)
[2017-02-12 06:21] LABS: HEMATOCRIT 22.6 % (35.0-45.0); HEMOGLOBIN 7.5 gm/dL (12.0-16.0)
[2017-02-12 06:33] LABS: CALCIUM SERUM 7.6 mg/dL (8.4-10.2); CREATININE SERUM 0.5 mg/dL (0.6-1.4); MAGNESIUM 1.9 mg/dL (1.6-3.0); POTASSIUM 3.4 mmol/L (3.5-5.1)
[2017-02-12 12:53] LABS: HEMATOCRIT 21.3 % (35.0-45.0); HEMOGLOBIN 7.1 gm/dL (12.0-16.0)
[2017-02-12 18:01] LABS: HEMATOCRIT 25.1 % (35.0-45.0); HEMOGLOBIN 8.4 gm/dL (12.0-16.0)
[2017-02-12 22:42] LABS: HEMATOCRIT 23.9 % (35.0-45.0); HEMOGLOBIN 7.9 gm/dL (12.0-16.0)
[2017-02-13 02:19] LABS: BASOPHIL% 0.6 % (0-2.5); EOSINOPHIL# 0.1 X10e3 (0-0.7); EOSINOPHIL% 1.1 % (0.0-7.0); HEMATOCRIT 24.1 % (35.0-45.0); HEMOGLOBIN 7.9 gm/dL (12.0-16.0); LYMPHOCYTE# 0.6 X10e3 (1.0-3.5); LYMPHOCYTE% 11.2 % (17.0-45.0); MEAN CORPUSCULAR HEMOGLOBIN 29.3 PG (28-34); MEAN PLATELET VOLUME 7.3 FL (6.5-11.5); MONOCYTE# 0.3 X10e3 (0-1.0); MONOCYTE% 6.4 % (3.0-12.0); NEUTROPHIL# 4.1 X10e3 (1.5-7.1); NEUTROPHIL% 80.7 % (40-75); RED BLOOD COUNT 2.71 X10e (3.90-5.30); RED CELL DISTRIBUTION WIDTH 15.8 % (11.0-15.5)
[2017-02-13 02:35] LABS: WHITE BLOOD COUNT 5.1 X10e3 (4.0-10.5)
[2017-02-13 02:36] LABS: MEAN CELL VOLUME 88.9 FL (83-96)
[2017-02-13 02:38] LABS: DIFF IND NO; PLATELET COUNT 79 X10e3 (140-420)
[2017-02-13 02:42] LABS: CALCIUM SERUM 7.6 mg/dL (8.4-10.2); CREATININE SERUM 0.4 mg/dL (0.6-1.4); GLOM FILT RATE Estimated 101.2 mL/min (>60); POTASSIUM 3.8 mmol/L (3.5-5.1)
[2017-02-13 06:18] LABS: HEMATOCRIT 25.1 % (35.0-45.0); HEMOGLOBIN 8.3 gm/dL (12.0-16.0)
[2017-02-13 14:13] LABS: HEMATOCRIT 28.4 % (35.0-45.0); HEMOGLOBIN 9.3 gm/dL (12.0-16.0)
[2017-02-13 20:52] LABS: HEMATOCRIT 28.5 % (35.0-45.0); HEMOGLOBIN 9.5 gm/dL (12.0-16.0)
[2017-02-14 05:26] LABS: BASOPHIL% 0.3 % (0-2.5); EOSINOPHIL% 0.7 % (0.0-7.0); HEMATOCRIT 27.5 % (35.0-45.0); HEMOGLOBIN 9.1 gm/dL (12.0-16.0); LYMPHOCYTE# 0.5 X10e3 (1.0-3.5); LYMPHOCYTE% 8.8 % (17.0-45.0); MEAN CELL VOLUME 91.3 FL (83-96); MEAN CORPUSCULAR HEMOGLOBIN 30.1 PG (28-34); MEAN CORPUSCULAR HGB CONC 32.9 g/dL (30-36); MONOCYTE# 0.4 X10e3 (0-1.0); MONOCYTE% 7.2 % (3.0-12.0); NEUTROPHIL# 4.7 X10e3 (1.5-7.1); PLATELET COUNT 87 X10e3 (140-420); RED BLOOD COUNT 3.01 X10e (3.90-5.30); RED CELL DISTRIBUTION WIDTH 15.8 % (11.0-15.5); WHITE BLOOD COUNT 5.6 X10e3 (4.0-10.5)
[2017-02-14 05:40] LABS: DIFF IND NO
[2017-02-14 07:00] LABS: BUN/CREATININE RATIO 86.66; CALCIUM SERUM 7.9 mg/dL (8.4-10.2); CREATININE SERUM 0.3 mg/dL (0.6-1.4); GLOM FILT RATE Estimated 111.3 mL/min (>60); MAGNESIUM 2.2 mg/dL (1.6-3.0); POTASSIUM 3.7 mmol/L (3.5-5.1)
[2017-02-14 12:27] LABS: HEMATOCRIT 31.4 % (35.0-45.0); HEMOGLOBIN 10.4 gm/dL (12.0-16.0)
[2017-02-14 13:09] LABS: MB 3.5 ng/ml
[2017-02-15 05:51] LABS: BASOPHIL% 0.3 % (0-2.5); EOSINOPHIL# 0.1 X10e3 (0-0.7); EOSINOPHIL% 1.3 % (0.0-7.0); HEMATOCRIT 29.4 % (35.0-45.0); HEMOGLOBIN 9.7 gm/dL (12.0-16.0); LYMPHOCYTE# 0.4 X10e3 (1.0-3.5); LYMPHOCYTE% 9.5 % (17.0-45.0); MEAN CELL VOLUME 90.6 FL (83-96); MEAN CORPUSCULAR HEMOGLOBIN 29.9 PG (28-34); MEAN PLATELET VOLUME 7.5 FL (6.5-11.5); MONOCYTE# 0.3 X10e3 (0-1.0); MONOCYTE% 7.5 % (3.0-12.0); NEUTROPHIL# 3.4 X10e3 (1.5-7.1); NEUTROPHIL% 81.4 % (40-75); PLATELET COUNT 89 X10e3 (140-420); RED BLOOD COUNT 3.25 X10e (3.90-5.30); RED CELL DISTRIBUTION WIDTH 16.1 % (11.0-15.5); WHITE BLOOD COUNT 4.2 X10e3 (4.0-10.5)
[2017-02-15 05:55] LABS: DIFF IND NO
[2017-02-15 06:26] LABS: BUN/CREATININE RATIO 26.66; CALCIUM SERUM 7.8 mg/dL (8.4-10.2); CREATININE SERUM 0.6 mg/dL (0.6-1.4); GLOM FILT RATE Estimated 88.5 mL/min (>60); PHOSPHOROUS 3.2 mg/dL (2.5-4.6)
[2017-02-15 06:50] LABS: POTASSIUM 2.7 mmol/L (3.5-5.1)
[2017-02-15 10:49] LABS: HEMOGLOBIN 6.7 gm/dL (12.0-16.0)
[2017-02-16 03:23] LABS: BASOPHIL% 0.4 % (0-2.5); EOSINOPHIL# 0.1 X10e3 (0-0.7); EOSINOPHIL% 1.9 % (0.0-7.0); HEMATOCRIT 28.9 % (35.0-45.0); HEMOGLOBIN 9.6 gm/dL (12.0-16.0); LYMPHOCYTE# 0.5 X10e3 (1.0-3.5); LYMPHOCYTE% 10.9 % (17.0-45.0); MEAN CORPUSCULAR HEMOGLOBIN 30.4 PG (28-34); MEAN PLATELET VOLUME 7.3 FL (6.5-11.5); MONOCYTE# 0.4 X10e3 (0-1.0); MONOCYTE% 8.5 % (3.0-12.0); NEUTROPHIL# 3.5 X10e3 (1.5-7.1); NEUTROPHIL% 78.3 % (40-75); PLATELET COUNT 79 X10e3 (140-420); RED BLOOD COUNT 3.14 X10e (3.90-5.30); RED CELL DISTRIBUTION WIDTH 16.5 % (11.0-15.5); WHITE BLOOD COUNT 4.5 X10e3 (4.0-10.5)
[2017-02-16 03:25] LABS: DIFF IND NO
[2017-02-16 03:40] LABS: CALCIUM SERUM 7.9 mg/dL (8.4-10.2); CREATININE SERUM 0.5 mg/dL (0.6-1.4); MAGNESIUM 1.9 mg/dL (1.6-3.0); POTASSIUM 3.8 mmol/L (3.5-5.1)
[2017-02-16] MEDS ORDERED: OMEPRAZOLE40 M1 PO (12:34)
[2017-02-16] MEDS ORDERED: HYDROCODON-ACE1 EAC7 PO ×2 (12:35→13:14)
[2017-02-16] MEDS ORDERED: SYMBICORT 16010.2 GM INH (12:36)
== END 2017-02-16 13:36 | disposition home or self-care (01) | DRG 357 ==
LOC: CSUR 07:29 → CPACUOF 10:00 → CSUR 11:29 → C4C 15:18 → CPACUOF 15:18 → CICCU3 02-11 13:24 → C3A PCU 02-15 16:42
PROVIDERS: Internal Medicine; Internal Medicine Cardiovascular Disease; Obstetrics & Gynecology; Specialist; Surgery
PROC: 30233N1 Transfusion of Nonautologous Red Blood Cells into Peripheral Vein, Percutaneous Approach (ICD-10-PCS; 2017-02-08)
PROC: 0WJJ4ZZ Inspection of Pelvic Cavity, Percutaneous Endoscopic Approach (ICD-10-PCS; principal; 2017-02-08 09:00)
PROC: 0DBW0ZX Excision of Peritoneum, Open Approach, Diagnostic (ICD-10-PCS; 2017-02-08 09:00)
PROC: 30233K1 Transfusion of Nonautologous Frozen Plasma into Peripheral Vein, Percutaneous Approach (ICD-10-PCS; 2017-02-11)
PROC: 30233L1 Transfusion of Nonautologous Fresh Plasma into Peripheral Vein, Percutaneous Approach (ICD-10-PCS; 2017-02-11)
DX: R19.09 Other intra-abdominal and pelvic swelling, mass and lump (principal); K92.2 Gastrointestinal hemorrhage, unspecified; J44.9 Chronic obstructive pulmonary disease, unspecified; D69.6 Thrombocytopenia, unspecified; D62 Acute posthemorrhagic anemia; C34.90 Malignant neoplasm of unspecified part of unspecified bronchus or lung; K74.60 Unspecified cirrhosis of liver; E87.70 Fluid overload, unspecified; R00.0 Tachycardia, unspecified; K21.9 Gastro-esophageal reflux disease without esophagitis; I10 Essential (primary) hypertension; Z88.1 Allergy status to other antibiotic agents; Z88.0 Allergy status to penicillin; Z88.8 Allergy status to other drugs, medicaments and biological substances; I25.10 Atherosclerotic heart disease of native coronary artery without angina pectoris; Z95.5 Presence of coronary angioplasty implant and graft; Z87.891 Personal history of nicotine dependence; I71.4 Abdominal aortic aneurysm, without rupture; D50.9 Iron deficiency anemia, unspecified; Z90.49 Acquired absence of other specified parts of digestive tract; Z83.3 Family history of diabetes mellitus; Z82.49 Family history of ischemic heart disease and other diseases of the circulatory system; K57.90 Diverticulosis of intestine, part unspecified, without perforation or abscess without bleeding
CPT/HCPCS: 71010; 74250; 78278; 80048; 80053; 82550; 82553; 82947; 83735; 83880; 84100; 84132; 84484; 85014; 85018; 85025; 85027; 85610; 85730; 86850; 86900; 86901; 86923; 88305; 88331; 88341; 88342; 93005; 94640; 94664; 94760; 94761; 97116; 97162; A9560; C9113; G8978-GP; G8979-GP; J0330; J1100; J1644; J1650; J1885; J1940; J2270; J2550; J2710; J2765; J2916; J3475; J3480; P9016; P9059

== ENCOUNTER 2017-03-26 14:08 | Emergency (ER) | payer MEDICARE, OTHER ==
[~2017-03-26 14:08] MED LIST changes: +HYDROCODON-ACE1 EAC7 PO; +OMEPRAZOLE40 M1 PO; +SYMBICORT 16010.2 GM INH
[2017-03-26 14:49] LABS: URINE SOURCE CLEAN CATCH
[2017-03-26 14:51] LABS: URINE APPEARANCE CLOUDY; URINE BILIRUBIN NEG (NEG); URINE BLOOD 3+ (NEG); URINE COLOR YELLOW; URINE GLUCOSE NEG (NORM); URINE KETONE NEG (NEG); URINE LEUKOCYTE ESTERASE 3+ (NEG); URINE NITRATE NEG (NEG); URINE PROTEIN 2+ (NEG); URINE SPECIFIC GRAVITY 1.015 (1.003-1.035)
[2017-03-26 14:53] LABS: MICRO INDICATED? YES
[2017-03-26 15:12] LABS: CULTURE INDICATED? YES; URINE BACTERIA 2+ (NEG); URINE WBC INNUM /[HPF] (0-5)
== END 2017-03-26 15:22 | disposition home or self-care (01) ==
LOC: SED 14:08
PROVIDERS: Student in an Organized Health Care Education/Training Program
DX: N39.0 Urinary tract infection, site not specified (principal); I25.10 Atherosclerotic heart disease of native coronary artery without angina pectoris; Z91.041 Radiographic dye allergy status; Z88.5 Allergy status to narcotic agent; Z88.1 Allergy status to other antibiotic agents; Z88.8 Allergy status to other drugs, medicaments and biological substances; Z79.899 Other long term (current) drug therapy
CPT/HCPCS: 81003; 87086; 87088; 87186; 99283

== ENCOUNTER → 2017-04-25 | Outpatient (CLI) | payer MEDICARE, OTHER ==
--- NOTE | ~2017-04-25 | CT57 ---
[facility] A Service of [facility] RADIOLOGY TEXT RESULTS PATIENT: SAMY BYNUM LOCATION: [facility] : 40 UNIT #: [id number] AGE: [address]: Ervin Yeung MD SEX: F ORDER DR: [id number] [place] [address] [id number] O MR#: [id number] Acc #: [id number] NAME: SAMY BYNUM : 1940 SEX: F STUDY DATE/TIME: 04/25/2017 8:26 UNIT: [facility] ROOM: STUDY DESCRIPTION: CT Chest Wo Cont Attending Physician: Ervin Yeung M.D. Referring Physician: Ervin Yeung M.D. Ordering Physician: Ervin Yeung M.D. Primary Care Physician: Papo Hare M.D. MEDICAL IMAGING REPORT This report is preliminary unless electronic signature is present. FINDINGS CT chest without contrast INDICATIONS Restaging lung cancer. Patient reports chemotherapy 10 years ago with radiation therapy, 2016. PROCEDURE Unenhanced CT of the chest. This CT exam was performed with one or more of the following radiation dose reduction techniques: automatic control, adjustment of mA and/or kV according to patient size, and iterative reconstruction. COMPARISON 07/12/2016 FINDINGS Small linear opacity extending through the medial right upper lobe and right lower lobe, similar to the prior study and most in keeping with post radiation change. Previously demonstrated somewhat nodular region in the medial right upper lobe measures up to 2.5 cm and is unchanged. Poorly defined nodular region in the medial right lower lobe is more apparent than on the previous study. Otherwise the lungs are clear. Coronary artery calcification. No appreciable hilar or mediastinal adenopathy. No aggressive appearing bone lesion. Refer to separately dictated abdomen and pelvis CT for findings below the diaphragm. IMPRESSION 1. Stable linear opacity in the medial right upper and lower lobes, in [facility] A Service of [facility] RADIOLOGY TEXT RESULTS PATIENT: SAMY BYNUM LOCATION: [facility] : 40 UNIT #: [id number] AGE: [address]: Ervin Yeung MD SEX: F ORDER DR: keeping with postradiation change. 2. A previously demonstrated nodular region along the medial aspect of the right upper lobe is stable. 3. A somewhat nodular area in the medial right lower lobe is more apparent than on the prior study but remains nonspecific. It could represent nodular scarring, but cannot exclude recurrent or progressed disease in this region this can be followed on future studies. Dictated by... Ravin Boyd M.D. THIS IS AN ELECTRONICALLY VERIFIED REPORT Ravin Boyd M.D. at 04/26/2017 7:02 AM OSCAR/brennen TD: 04/25/2017 23:28 JOB #: [id number] MEDICAL IMAGING REPORT Page 1 of 1
--- NOTE | ~2017-04-25 | CT4 ---
[facility] A Service of [facility] RADIOLOGY TEXT RESULTS PATIENT: SAMY BYNUM LOCATION: [facility] : 40 UNIT #: [id number] AGE: [address]: Ervin Yeung MD SEX: F ORDER DR: [id number] [place] [address] [id number] O MR#: [id number] Acc #: [id number] NAME: SAMY BYNUM : 1940 SEX: F STUDY DATE/TIME: 04/25/2017 8:11 UNIT: [facility] ROOM: STUDY DESCRIPTION: CT Abd and Pelv Wo Cont Attending Physician: Ervin Yeung M.D. Referring Physician: Ervin Yeung M.D. Ordering Physician: Ervin Yeung M.D. Primary Care Physician: Papo Haer M.D. MEDICAL IMAGING REPORT This report is preliminary unless electronic signature is present. EXAM CT abdomen and pelvis without contrast. INDICATIONS Restaging lung cancer. Chemotherapy 10 years ago and radiation therapy November 2016. Observation for metastatic disease. PROCEDURE Unenhanced CT of the abdomen and pelvis. This CT exam was performed with one or more of the following radiation dose reduction techniques: automatic exposure control, adjustment of mA and/or kV according to patient size, and iterative reconstruction. COMPARISON 12/05/2016 FINDINGS CHEST: Refer to separately dictated chest CT for thoracic findings. ABDOMEN WITHOUT CONTRAST: Cirrhosis. No liver mass seen on this single phase study. Spleen measures 16.3 cm. No ascites. The kidneys, adrenal glands, and pancreas are unremarkable. Previous cholecystectomy. The bowel loops are nondilated. Extensive sigmoid diverticula. 5.3-cm infrarenal abdominal aortic aneurysm has not significantly changed from the prior. PELVIS WITHOUT CONTRAST: Streak artifact from hip prostheses degrades image quality. Redemonstration of apparent mass along the left pelvic sidewall inseparable from the sigmoid colon and left adnexal region. It [facility] A Service of [facility] RADIOLOGY TEXT RESULTS PATIENT: SAMY BYNUM LOCATION: [facility] : 40 UNIT #: [id number] AGE: [address]: Ervin Yeung MD SEX: F ORDER DR: measures approximately 7.2 x 5.2 cm, slightly increased in size from the previous study. This region contains scattered foci of air, which could represent some necrosis or possibly communication with the sigmoid colon versus adjacent sigmoid diverticula. There is a moderate amount of air in the bladder. Correlate with recent catheterization. No definite communication between the colon and the bladder is seen on this study. No aggressive-appearing bone lesion. IMPRESSION 1. Mass-like region along the left pelvic sidewall is slightly larger than on the previous study. Considerations include malignancy and chronic diverticular abscess. 2. Extensive sigmoid diverticulosis. 3. Cirrhosis with sequela of portal hypertension. 4. Stable infrarenal abdominal aortic aneurysm. Dictated by... Ravin Boyd M.D. THIS IS AN ELECTRONICALLY VERIFIED REPORT Ravin Boyd M.D. at 04/26/2017 7:02 AM OSCAR/fior TD: 04/25/2017 16:24 JOB #: [id number] MEDICAL IMAGING REPORT Page 1 of 1
== END | disposition home or self-care (01) ==
LOC: SCT 08:11 → CCAT 08:30 → SCT 08:30
DX: C34.90 Malignant neoplasm of unspecified part of unspecified bronchus or lung (principal); R91.8 Other nonspecific abnormal finding of lung field; K57.30 Diverticulosis of large intestine without perforation or abscess without bleeding; K74.60 Unspecified cirrhosis of liver; K76.6 Portal hypertension; I71.4 Abdominal aortic aneurysm, without rupture
CPT/HCPCS: 71250; 74176